=== PATIENT | male | born 1950 | race Two or more races ===

== ENCOUNTER 2020-06-14 21:39 | Emergency (ER) | payer OTHER ==
[~2020-06-14] VITALS: Ht 182.9 cm; Wt 87.5 kg
[2020-06-14] MEDS ORDERED: DIOVAN160 M1 (22:08)
== END 2020-06-14 22:53 | disposition home or self-care (01) ==
LOC: ER 21:39
DX: R33.8 Other retention of urine (principal)

== ENCOUNTER 2020-07-31 05:10 | Inpatient (IN) | payer OTHER ==
[~2020-07-31 05:10] MED LIST: CARDIZEM CD240 MG PO; DIOVAN160 M1; DIOVAN160 M1 PO; TAMS0.4C PO
== END 2020-08-04 16:27 | disposition home or self-care (01) | DRG 713 ==
LOC: CIR.AMB 05:10 → SURG 10:39 → O/R 10:39 → SURG 11:40 → CIR.AMB 12:30 → SURG 08-04 16:27
PROVIDERS: ADMIT Urology; ATTEND Urology
PROC: 0VT08ZZ Resection of Prostate, Via Natural or Artificial Opening Endoscopic (ICD-10-PCS; principal; 2020-07-31 07:00)
DX: N40.1 Benign prostatic hyperplasia with lower urinary tract symptoms (principal); I48.20 Chronic atrial fibrillation, unspecified; R33.8 Other retention of urine

== ENCOUNTER 2022-10-30 14:20 | Outpatient (CLI) | payer OTHER | END 2022-10-30 14:22 | disposition home or self-care (01) | LOC: LAB 14:20 | PROVIDERS: ATTEND Urology | DX: R97.20 Elevated prostate specific antigen [PSA] (principal) ==

== ENCOUNTER 2022-12-18 07:10 | Outpatient (CLI) | payer OTHER | END 2022-12-18 07:24 | disposition home or self-care (01) | LOC: SONOGRAMA 07:10 | PROVIDERS: ATTEND Urology | DX: D29.1 Benign neoplasm of prostate (principal); N41.1 Chronic prostatitis ==

== ENCOUNTER 2022-12-18 08:48 | Emergency (ER) | payer OTHER ==
[~2022-12-18] VITALS: Ht 182.9 cm; Wt 86.2 kg
== END 2022-12-18 14:06 | disposition home or self-care (01) ==
LOC: ER 08:48
DX: R55 Syncope and collapse (principal); I10 Essential (primary) hypertension

== ENCOUNTER 2024-11-10 20:34 | Inpatient (IN) | payer OTHER ==
[~2024-11-10] VITALS: Ht 182.9 cm; Wt 85.7 kg
[2024-11-10] MEDS ORDERED: ELIQUIS5 MG (20:48)
[2024-11-10] MEDS ORDERED: TAMS0.4C (20:48)
--- NOTE | 2024-11-10 20:49 | NUR ---
SE RECIBE PTE ALERTA Y ORIENTADO EL CUAL REFIERE VENIR POR REFERIDO DE DR. JONES POR PROSTATITIS. PTE REFIERE PRESENTAR FIEBRE. SE MIDEN S/V A PTE Y SE UBICA.
--- NOTE | 2024-11-10 22:05 | NUR ---
SE MANDIE MUESTRAS DE LAB POR ORDEN MEDICA
[2024-11-10] MEDS ORDERED: FAMOTIDINE/PF 20 MG in 0.9 % SODIUM CHLORIDE 8 ML IV PUSH SCH (23:08)
[2024-11-10] MEDS ORDERED: CEFTRIAXONE SODIUM 2,000 MG in 0.9 % SODIUM CHLORIDE 100 ML IV SCH (23:08)
[2024-11-10 23:14] LABS: PH,URINE 6.5 (5.0-8.0); URINE APPEARANCE Clear; URINE BILIRRUBIN Negative (NEGATIVE); URINE BLOOD Negative; URINE COLOR Yellow; URINE GLUCOSE Negative (NEGATIVE); URINE KETONE Negative (NEGATIVE); URINE LEUKOCYTE Small; URINE NITRATE Negative; URINE PROTEIN Negative (NEGATIVE); URINE UROBILINOGEN 0.2 E.U./dl
[2024-11-10] MEDS ORDERED: ONDANSETRON HCL 4 MG in 0.9 % SODIUM CHLORIDE 50 ML IV PRN (23:15)
[2024-11-10] MEDS ORDERED: 0.9 % SODIUM CHLORIDE 1,000 ML IV SCH (23:15)
[2024-11-10] MEDS ORDERED: ACETAMINOPHEN 500 MG GEL..CAP PO PRN (23:15)
[2024-11-10 23:23] LABS: URINE BACTERIA 26.9 uL (0.0-1933); URINE EPITHELIAL CELLS 8.2 uL (0.0-38.8); URINE RBC 2.3 uL (0.0-20.8)
[2024-11-10 23:32] LABS: BASO % 0.3 % (0.1-1.2); EOS # 0.05 (0.04-0.54); EOS % 0.2 % (0.7-7.0); HEMATOCRIT 37.6 % (40.1-51.0); LYMPH # 1.54 (1.18-3.74); LYMPH % 7.1 % (19.3-53.1); MEAN CORPUSCULAR HEMOGLOBIN 29.7 pg (25.6-32.2); MONO # 2.27 (0.24-0.82); MONO % 10.5 % (4.7-12.5); NEUT # 17.49 (1.56-6.13); NEUT % 81.1 % (34.0-71.1); PLATELET COUNT 216 K/uL (163-369); RED BLOOD COUNT 4.34 M/uL (4.63-6.08); RED CELL DISTRIBUTION WIDTH 12.5 % (11.6-14.4)
[2024-11-10 23:34] LABS: HEMOGLOBIN 12.9 g/dL (13.7-17.5)
[2024-11-10 23:39] LABS: ALBUMIN 3.4 gm/dL (3.4-5.0); BILIRUBIN TOTAL 0.96 mg/dL (0.3-1.2); CALCIUM 8.2 mg/dL (8.5-10.1); GFR 73.45; GLOBULINA 3.8 G/DL (2.4-3.5); POTASSIUM 3.24 mEq/L (3.5-5.1); TOTAL PROTEIN 7.2 gm/dL (6.4-8.2)
[2024-11-11 04:09] VITALS: BP 136/78
[2024-11-11] MEDS ORDERED: APIXABAN 5 MG TABLET PO SCH (05:00)
[2024-11-11 05:01] LABS: INR 1.16; PARTIAL THROMBOPLASTIN TIME 35.1 SECONDS (22.0-34.0); PROTHROMBIN TIME 12.5 SECONDS (9.0-11.5)
[2024-11-11 05:06] LABS: C-REACTIVE PROTEIN 16.9 MG/DL (0.00-0.29); PROSTATIC SPECIFIC ANTIGEN 90.5 NG/ML (0.010-4.00)
[2024-11-11 05:40] VITALS: BP 142/70; O2SAT 100
[2024-11-11 08:00] VITALS: BP 109/64; O2SAT 95
[2024-11-11] MEDS ORDERED: DILTIAZEM HCL 240 MG CAP.SR.24H PO SCH (09:00)
[2024-11-11] MEDS ORDERED: TAMSULOSIN HCL 0.4 MG CAP PO SCH (09:00)
[2024-11-11 16:00] VITALS: BP 117/67; O2SAT 95
[2024-11-12] VITALS: BP 114/66; O2SAT 97
[2024-11-12 06:40] LABS: BASO % 0.5 % (0.1-1.2); EOS # 0.17 (0.04-0.54); EOS % 1.5 % (0.7-7.0); HEMOGLOBIN 12.9 g/dL (13.7-17.5); LYMPH # 1.44 (1.18-3.74); LYMPH % 12.4 % (19.3-53.1); MEAN CORPUSCULAR HEMOGLOBIN 29.6 pg (25.6-32.2); MONO # 1.35 (0.24-0.82); MONO % 11.7 % (4.7-12.5); NEUT # 8.51 (1.56-6.13); NEUT % 73.5 % (34.0-71.1); PLATELET COUNT 222 K/uL (163-369); RED BLOOD COUNT 4.36 M/uL (4.63-6.08); RED CELL DISTRIBUTION WIDTH 12.7 % (11.6-14.4)
[2024-11-12 07:14] LABS: ALBUMIN 3.1 gm/dL (3.4-5.0); BILIRUBIN TOTAL 0.5 mg/dL (0.3-1.2); C-REACTIVE PROTEIN 11.4 MG/DL (0.00-0.29); CREATININE SERUM 0.85 mg/dL (0.70-1.30); GFR 88.6; GLOBULINA 3.1 G/DL (2.4-3.5); MAGNESIUM 2.3 mg/dL (1.8-2.4); PHOSPHOROUS 3.1 mg/dL (2.5-4.9); POTASSIUM 3.68 mEq/L (3.5-5.1); TOTAL PROTEIN 6.2 gm/dL (6.4-8.2)
[2024-11-12 08:00] VITALS: BP 124/69; O2SAT 97
[2024-11-12 16:30] VITALS: BP 111/69; O2SAT 97
[2024-11-13 00:52] VITALS: BP 121/65; O2SAT 95
[2024-11-13 08:23] VITALS: BP 139/69; O2SAT 97
[2024-11-13 15:00] VITALS: BP 115/76; O2SAT 98
[2024-11-13 16:34] LABS: URINE APPEARANCE Clear; URINE BILIRRUBIN Negative (NEGATIVE); URINE BLOOD Negative; URINE COLOR Yellow; URINE GLUCOSE Negative (NEGATIVE); URINE KETONE Negative (NEGATIVE); URINE LEUKOCYTE Small; URINE NITRATE Negative; URINE PROTEIN Negative (NEGATIVE)
[2024-11-13 16:37] LABS: URINE EPITHELIAL CELLS 6.1 uL (0.0-38.8); URINE RBC 5.7 uL (0.0-20.8); URINE WBC 66.9 uL (0.0-23.2)
[2024-11-14 00:37] VITALS: BP 119/69; O2SAT 95
[2024-11-14 08:01] VITALS: BP 129/70; O2SAT 98
[2024-11-14 08:39] LABS: ALBUMIN 3.3 gm/dL (3.4-5.0); BILIRUBIN TOTAL 0.38 mg/dL (0.3-1.2); CALCIUM 8.6 mg/dL (8.5-10.1); CREATININE SERUM 0.94 mg/dL (0.70-1.30); GFR 78.89; GLOBULINA 3.3 G/DL (2.4-3.5); MAGNESIUM 2.1 mg/dL (1.8-2.4); PHOSPHOROUS 3.8 mg/dL (2.5-4.9); POTASSIUM 4.29 mEq/L (3.5-5.1); TOTAL PROTEIN 6.6 gm/dL (6.4-8.2)
[2024-11-14 08:41] LABS: BASO % 1.2 % (0.1-1.2); EOS # 0.19 (0.04-0.54); EOS % 2.5 % (0.7-7.0); HEMATOCRIT 38.9 % (40.1-51.0); HEMOGLOBIN 12.9 g/dL (13.7-17.5); LYMPH # 1.64 (1.18-3.74); LYMPH % 21.6 % (19.3-53.1); MEAN CORPUSCULAR HEMOGLOBIN 29.3 pg (25.6-32.2); MONO # 0.83 (0.24-0.82); MONO % 10.9 % (4.7-12.5); NEUT # 4.79 (1.56-6.13); NEUT % 63.3 % (34.0-71.1); PLATELET COUNT 289 K/uL (163-369); RED BLOOD COUNT 4.41 M/uL (4.63-6.08); RED CELL DISTRIBUTION WIDTH 12.5 % (11.6-14.4)
[2024-11-14 08:49] LABS: PROSTATIC SPECIFIC ANTIGEN 53.2 NG/ML (0.010-4.00)
== END 2024-11-14 11:50 | disposition home or self-care (01) | DRG 728 ==
LOC: ER 21:11 → SURH 23:11 → MEDJ 23:11 → SURH 11-11 00:23
PROVIDERS: General Practice; Internal Medicine Infectious Disease; ADMIT Student in an Organized Health Care Education/Training Program; ATTEND Student in an Organized Health Care Education/Training Program
DX: N41.0 Acute prostatitis (principal); N39.0 Urinary tract infection, site not specified; I48.91 Unspecified atrial fibrillation; I11.9 Hypertensive heart disease without heart failure; B95.2 Enterococcus as the cause of diseases classified elsewhere